=== PATIENT | male | born 1975 | race Caucasian/White ===

== ENCOUNTER 2021-05-20 17:15 | Emergency (ER) | payer SELFPAY ==
[2021-05-20] MEDS ORDERED: dexAMETHasone 4 MG/ML VIAL IM ONE (17:25)
--- NOTE | 2021-05-20 17:25 | Event Note ---
ED Screening Note Date of service: 05/20/21 Time: 17:23 ED Screening Note: 45-year-old male who was tested positive for Covid presents to the emergency room for difficulty breathing. Patient's states that they told him to take Tylenol for fever and discomfort. states that when he has Tylenol it makes him worse with shortness of breath. Patient presents in with tachypneic at a rate of 32. Patient satting at 100% with a heart rate of around 93. This initial assessment/diagnostic orders/clinical plan/treatment(s) is/are subject to change based on patients health status, clinical progression and re- assessment by fellow clinical providers in the ED. Further treatment and workup at subsequent clinical providers discretion. Patient/guardian urged not to elope from the ED as their condition may be serious if not clinically assessed and managed. Initial orders include: dex
--- NOTE | 2021-05-20 18:32 | XRay Report ---
CHEST 1 VIEW 05/20/2021 5:26 PM INDICATION / CLINICAL INFORMATION: dyspnea. COMPARISON: None available. FINDINGS: SUPPORT DEVICES: None. HEART / MEDIASTINUM: No significant abnormality. LUNGS / PLEURA: No significant pulmonary or pleural abnormality. No pneumothorax. ADDITIONAL FINDINGS: No significant additional findings. IMPRESSION: 1. No acute findings. Signer Name: Juan Berry MD Signed: 05/20/2021 6:27 PM Workstation Name: [id number]
[2021-05-20 19:01] LABS: Basophils % (Auto) 0.4 % (0.0-1.8); Hematocrit 44.5 % (35.5-45.6); Hemoglobin 15.3 gm/dl (11.8-15.2); Lymphocytes # (Auto) 0.8 K/mm3 (1.2-5.4); Lymphocytes % (Auto) 13.2 % (13.4-35.0); Mean Corpuscular HGB Conc 34 % (32-34); Mean Corpuscular Volume 87 fl (84-94); Monocytes # (Auto) 0.3 K/mm3 (0.0-0.8); Monocytes % (Auto) 5.2 % (0.0-7.3); Platelet Count 154 K/mm3 (140-440); Red Blood Count 5.12 M/mm3 (3.65-5.03); Red Cell Distribution Width 13.2 % (13.2-15.2)
--- NOTE | 2021-05-20 19:01 | Emergency Department Report ---
ED Shortness of Breath HPI - General Chief Complaint: Dyspnea/Respdistress Stated Complaint: MATTHEW/CHEST PAIN Time Seen by Provider: 05/20/21 18:18 Source: patient Mode of arrival: Ambulatory Limitations: No Limitations - History of Present Illness Initial Comments: 45-year-old male presents to ED with shortness of breath. Patient tested positive for COVID-19 almost 2 weeks ago. Patient states 3 days ago he began with some shortness of breath. Patient reports associated fever and cough. Patient is unvaccinated. Patient states he was seen at [facility] a couple days ago same complaint of shortness of breath. Patient states he was worked up and discharged from the ED. MD Complaint: shortness of breath -: days(s) (3) Severity: moderate Improves With: rest Worsens With: exertion Associated Symptoms: chest pain, fever, cough Treatments Prior to Arrival: none - Related Data Previous Rx's Medication Instructions Recorded Last Taken Type Ondansetron [Zofran Odt] 4 mg PO Q8HR PRN #20 tab.rapdis 05/20/21 Unknown Rx Allergies Allergy/AdvReac Type Severity Reaction Status Date / Time acetaminophen [From Tylenol] AdvReac Intermediate Nausea Verified 05/20/21 18:18 ED Review of Systems ROS: Stated complaint: MATTHEW/CHEST PAIN Other details as noted in HPI Comment: All other systems reviewed and negative Constitutional: chills, fever Respiratory: cough, shortness of breath Cardiovascular: chest pain Gastrointestinal: vomiting, diarrhea Musculoskeletal: myalgia ED Past Medical Hx - Past Medical History Previous Medical History?: No - Surgical History Past Surgical History?: No - Medications Home Medications: Home Medications Medication Instructions Recorded Confirmed Last Taken Type Ondansetron [Zofran Odt] 4 mg PO Q8HR PRN #20 tab.rapdis 05/20/21 Unknown Rx ED Physical Exam - General Limitations: No Limitations General appearance: alert, anxious - Head Head exam: Present: atraumatic, normocephalic - Eye Eye exam: Present: normal appearance, EOMI - ENT ENT exam: Present: mucous membranes moist - Neck Neck exam: Present: normal inspection - Respiratory Respiratory exam: Present: normal lung sounds bilaterally, other (Tachypneic) - Cardiovascular Cardiovascular Exam: Present: regular rate, normal rhythm - GI/Abdominal GI/Abdominal exam: Present: soft. Absent: distended, tenderness - Extremities Exam Extremities exam: Present: normal inspection - Neurological Exam Neurological exam: Present: alert, oriented X3 - Psychiatric Psychiatric exam: Present: normal affect, normal mood - Skin Skin exam: Present: warm, dry, intact, normal color ED Course Vital Signs 05/20/21 05/20/21 05/20/21 17:17 18:00 18:15 Temperature 97.7 F Pulse Rate 93 H 96 H 90 Respiratory 32 H 24 16 Rate Blood Pressure 140/80 Blood Pressure 136/94 [Right] O2 Sat by Pulse 99 98 97 Oximetry 05/20/21 05/20/21 05/20/21 18:31 18:45 19:01 Temperature Pulse Rate 90 93 H 98 H Respiratory 26 H 31 H 30 H Rate Blood Pressure 140/80 140/80 140/80 Blood Pressure [Right] O2 Sat by Pulse 96 94 95 Oximetry 05/20/21 05/20/21 05/20/21 19:15 19:30 19:45 Temperature Pulse Rate 95 H 95 H 93 H Respiratory 23 32 H 32 H Rate Blood Pressure 140/80 140/80 140/80 Blood Pressure [Right] O2 Sat by Pulse 97 96 96 Oximetry 05/20/21 05/20/21 05/20/21 20:01 20:15 20:20 Temperature Pulse Rate 93 H 93 H Respiratory 25 H 16 Rate Blood Pressure 140/80 140/80 Blood Pressure [Right] O2 Sat by Pulse 97 98 98 Oximetry - Reevaluation(s) Reevaluation #1: 05/20/21 19:51 Normal ambulatory O2 sat. 05/20/21 19:58 I reviewed pt's discharge paperwork from [facility] from 3 days ago. States pt had a negative CTA Chest. Will cancel current order for CTA. Reevaluation #2: 05/20/21 20:43 Following discussion with patient and regarding discharge, I printed discharge paperwork for pt. Medic informed me that is refusing to accept discharge papers and refusing to leave. I again spoke w/ pt's (pt himself is actually calm and quiet). She is complaining that pt did not receive any zofran here in the ED. I explained that pt has not had any vomiting nor diarrhea, and that a prescription for zofran has been provided. Pt's then proceeded to yell and scream. I left the room and took a picture of me with her cell phone stating, "You're about to go viral." Security called. ED Medical Decision Making - Lab Data Result diagrams: 05/20/21 18:12 05/20/21 18:12 - EKG Data -: EKG Interpreted by Me EKG shows normal: sinus rhythm, intervals, QRS complexes, ST-T waves Rate: normal - EKG Data Interpretation: other (RBBB, LAFB) - Radiology Data Radiology results: report reviewed, image reviewed - Medical Decision Making 45-year-old male presents to ED with shortness of breath. Patient was diagnosed with COVID-19 approximately 2 weeks ago. Chest x-ray is normal. O2 sats are normal at rest and with ambulation. D-dimer was obtained with the hopes of possibly obtaining a CTA chest. However I reviewed patient's paperwork from [facility] from ED visit 3 days ago. Patient did undergo CTA at [facility] which was negative. Will not repeat at this time. Patient states his sy mptoms are no worse than they were 3 days ago when he was seen at [facility]. Will discharge at this time. Patient advised to monitor his O2 sats with at home pulse oximeter. Discussed with patient and he is agreeable with plan. Nurse tells me that patient's also very concerned, so I allowed to come into patient's room so that I could explain test results to both of them. is concerned that patient has had some vomiting and diarrhea. I explained to that she can get Imodium [id number] for patient's diarrhea and I will prescribe a prescription for Zofran for his nausea. Patient has had no episodes of emesis or diarrhea while here in the ED. Outpatient follow-up advised, return precautions given. - Differential Diagnosis COVID-19, ACS, pneumonia, PE Critical care attestation.: If time is entered above; I have spent that time in minutes in the direct care of this critically ill patient, excluding procedure time. ED Disposition Clinical Impression: COVID-19 Disposition: 01 HOME / SELF CARE / HOMELESS Is pt being admited?: No Condition: Stable Instructions: COVID-19 Additional Instructions: Your chest x-ray is normal. Your oxygen level is normal. Please continue to monitor your oxygen level at home. Return to the emergency r oom if your oxygen is less than 92%. Return to the emergency room if your symptoms worsen. Take [id number] Imodium for diarrhea as directed on the packaging. Prescriptions: Ondansetron [Zofran Odt] 4 mg PO Q8HR PRN #20 tab.rapdis PRN Reason: Vomiting Referrals: PRIMARY CARE, [Primary Care Provider] - 3-5 Days Time of Disposition: 20:14
[2021-05-20 19:09] LABS: Alanine Aminotransferase 69 units/L (7-56); BUN/Creatinine Ratio 8; Blood Urea Nitrogen 8 mg/dL (9-20); Calcium 8.7 mg/dL (8.4-10.2); Hemolysis Index 11
[2021-05-20 19:24] VITALS: BP 140/80
--- NOTE | 2021-05-23 12:21 | Electrocardiograph Report ---
[facility] Test Date: 2021-05-20 Test Time: 17:22:30 Pat Name: RICCARDO ALEGRE Department: Room: Gender: M Stone Layer: LORETTA : 1975 Requested By: DANIEL HAAS Order Number: [id number] Reading MD: Garima Rosales Measurements Intervals [place] Rate: 82 P: 54 NE: 142 QRS: -80 QRSD: 147 T: 16 QT: 389 QTc: 453 Interpretive Statements Sinus rhythm RBBB and LAFB No previous ECG available for comparison Electronically Signed On 05-23-2021 12:20:58 EDT by Garima Rosales
== END 2021-05-20 20:37 | disposition home or self-care (01) ==
LOC: ED 17:15
DX: U07.1 COVID-19 (principal)
CPT/HCPCS: 36415; 71045; 80053; 84484; 85025; 85379; 93005; 96372; 99283; J1100